=== PATIENT | female | born 1940 | race African-American/Black ===

== ENCOUNTER 2019-12-14 19:43 | Emergency (ER) | payer MEDICAID, MEDICARE, SELFPAY ==
--- NOTE | 2019-12-14 20:05 | EDM.PDOC ---
ED HPI GENERAL MEDICAL PROBLEM - General Chief Complaint: Respiratory Problem Stated Complaint: COUGH Time Seen by Provider: 12/14/19 19:45 Source of Information: Reports: Patient - History of Present Illness INITIAL COMMENTS - FREE TEXT/NARRATIVE: The patient is an 79-year-old female who presents to the ER for multiple complaints. She states that she has had multiple sick contacts and that she has been coughing for almost 5 weeks. She has been seen at other emergency departments but she does not remember their names. Her chest also hurts when she coughs. She feels like she is getting worse. No fevers or chills. Both of her eyes are become red and inflamed. Her nose is congested. She also has visiting from [place], and she will be here for approximately 1 month and she needs refills on multiple medications. No headaches, no other acute complaints. - Related Data Allergies Allergy/AdvReac Type Severity Reaction Status Date / Time penicillin Allergy Rash Verified 12/14/19 20:02 sulfamethoxazole Allergy UNKNOWN Verified 12/14/19 20:02 trimethoprim Allergy UNKNOWN Verified 12/14/19 20:02 tuberculin, purified protein Allergy Cannot Verified 12/14/19 20:02 deriva Remember [tuberculin,purif.prot.deriv.] codeine AdvReac Nausea and Verified 12/14/19 20:02 Vomiting Home Meds: Home Meds Allopurinol [Zyloprim] 100 mg PO DAILY #30 tablet 12/14/19 [Rx] Benzonatate [Tessalon Perle] 200 mg PO Q8HR PRN #60 capsule 12/14/19 [Rx] Furosemide [Lasix] 40 mg PO DAILY 30 Days #40 tablet 12/14/19 [Rx] Losartan [Cozaar] 100 mg PO DAILY 30 Days #30 tablet 12/14/19 [Rx] Sertraline [Zoloft] 75 mg PO DAILY 30 Days #45 tablet 12/14/19 [Rx] Verapamil [Covera-HS] 240 mg PO DAILY 30 Days #30 tab.er 12/14/19 [Rx] buPROPion [Wellbutrin] 75 mg PO BEDTIME 30 Days #30 tablet 12/14/19 [Rx] Past Medical History HEENT History: Reports: Impaired Vision, Other (See Below) Other HEENT History: Left "eye disease" Cardiovascular History: Reports: High Cholesterol, Hypertension Respiratory History: Reports: Bronchitis, Recurrent, COPD Other Respiratory History: Smoked less than a pack of cigarettes a day for 40 years. Has quit smoking cigarettes since entering the alf in May 2016. Gastrointestinal History: Reports: GERD PALLIATIVE CARE NURSE History: Reports: Musculoskeletal History: Reports: Osteoarthritis Neurological History: Reports: Neuropathy, Diabetic Psychiatric History: Reports: None Endocrine/Metabolic History: Reports: Diabetes, Type II, Obesity/BMI 30+, Other (See Below) Hematologic History: Reports: Anemia Dermatologic History: Reports: Decubitus Ulcer - Infectious Disease History Infectious Disease History: Reports: MRSA - Past Surgical History Cardiovascular Surgical History: Reports: Vascular Surgery, Other (See Below) Endocrine Surgical History: Reports: Other (See Below) Musculoskeletal Surgical History: Reports: Amputation, Other (See Below) Social & Family History - Family History Cardiac: Reports: Aneurysm, Bypass, Hypertension, MA, Stent Respiratory: Reports: Asthma, Sleep Apnea Musculoskeletal: Reports: Arthritis Neurological: Reports: Cerebral Aneurysms, TIA Psychiatric: Reports: ADHD Endocrine/Metabolic: Reports: Diabetes, type II Immunologic: Reports: None Oncologic: Reports: Colon - Caffeine Use Caffeine Use: Reports: Coffee Other Caffeine Use: decaf Caffeine Use Comment: seldom drink soda - Living Situation & Occupation Living situation: Reports: Extended Care Facility Occupation: Disabled ED ROS GENERAL - Review of Systems Review Of Systems: See Below Free Text/Narrative/Comment: Positive for dry cough, negative for fevers, negative for chills, positive for nasal congestion, positive for bilateral eye inflammation, all other Positives and pertinent negatives as per HPI. All other pertinent systems were reviewed and are negative ED EXAM, GENERAL - Physical Exam Exam: See Below Free Text/Narrative:: Constitutional: No acute distress, Non-toxic appearance, harsh dry cough and looks like she does not feel well, sounds congested with laryngitis HEENT.: Normocephalic, PERRL, EOMI, bilateral conjunctival chemosis and injection without exudate, external ears are atraumatic, Oropharynx clear and moist without lesions or masses, nares are congested without epistaxis Neck: Normal range of motion, Trachea Midline, No stridor Respiratory.: No respiratory distress, No tachypnea, Lungs Clear to Auscultation bilaterally without wheezes, rales, or rhonchi, dry cough Cardiovascular.: Regular rate and Rhythm without murmurs, rubs, or gallops, good peripheral perfusion GI: Abdomen soft and non tender, obese Genital Urinary: Deferred Musculoskeletal: Good range of motion. All 4 extremities present and atraumatic , no edema Back: Full Range of Motion Skin: Warm, Dry, Color is ethnicity appropriate, No acute rash. Lymphatic: No lymphadenopathy noted Neurological: Alert, Awake and oriented x 3, No focal deficits noted appreciate , GCS 15 Psych: Affect, Judgement, mood normal Course - Vital Signs Text/Narrative:: The patient symptoms are consistent with a viral syndrome. She has tried some [id number] medications so she will be prescribed some Tessalon Perles to help with her symptoms. The patient is also going to be here for the next month and needs refills on her medications so I will give her a one-month supply of her bupropion 75 mg, verapamil extended release 240 mg, furosemide 40 mg, sertraline 50 mg, allopurinol 100 mg, and losartan 100 mg. Departure - Departure Time of Disposition: 20:09 Disposition: Home, Self-Care 01 Condition: Good Clinical Impression: Viral syndrome, Medication refill - Discharge Information Instructions: Viral Respiratory Infection Referrals: PCP,Not In Area [Primary Care Provider] -
[2019-12-14] MEDS ORDERED: Benzonatate 100 MG Cap PO ONE (20:26)
[2019-12-14] MEDS ORDERED: Losartan 50 MG Tab PO ONE (20:56)
[2019-12-14 21:04] VITALS: BP 190/110
[2019-12-14 21:13] VITALS: PULSE 83
== END 2019-12-14 21:06 | disposition home or self-care (01) ==
LOC: MW.ED 19:43
DX: B34.9 Viral infection, unspecified (principal); Z76.0 Encounter for issue of repeat prescription; I10 Essential (primary) hypertension; E11.40 Type 2 diabetes mellitus with diabetic neuropathy, unspecified; J44.9 Chronic obstructive pulmonary disease, unspecified; M19.90 Unspecified osteoarthritis, unspecified site; E66.9 Obesity, unspecified; Z87.891 Personal history of nicotine dependence; Z88.0 Allergy status to penicillin; Z88.2 Allergy status to sulfonamides; Z88.5 Allergy status to narcotic agent; Z88.8 Allergy status to other drugs, medicaments and biological substances; Z79.899 Other long term (current) drug therapy
CPT/HCPCS: 93005; 99283; A9270; 99282